=== PATIENT | male | born 1985 | race African-American/Black ===

== ENCOUNTER 2018-08-25 03:33 | Emergency (ER) | payer OTHER ==
[2018-08-25] MEDS ORDERED: Ondansetron ODT 4 MG TAB ONE (04:12)
== END 2018-08-25 04:23 | disposition home or self-care (01) ==
LOC: ERS 03:33
DX: R11.10 Vomiting, unspecified (principal); F17.210 Nicotine dependence, cigarettes, uncomplicated
CPT/HCPCS: 99283; Q0162